=== PATIENT | male | born 1980 | race Caucasian/White ===

== ENCOUNTER 2024-02-24 06:47 | Observation (INO) ==
--- NOTE | 2024-02-24 07:26 | Emergency Department Note ---
Impression & Plan Abnormal EKG, Tachycardia, Leukocytosis ED Provider Note NAME: ARLENE OVERTON AGE: 43 SEX: M : 1980 ARRIVES VIA: Walk-In INFORMANT: Patient ED PROVIDER(S): Greg Saldana DO CHIEF COMPLAINT: Abnormal blood work HPI: Patient is a 43-year-old male who presents the ER who notes that his fingertips have been feeling cold for the past several weeks. He notes it comes and goes and is able to rewarm. He notes the blood work and EKG and was found to have an abnormal EKG. He also notes to purple spots on his feet which have been present. He denies any headache or change in vision. No chest pain or shortness of breath. He does have a little bit of congestion runny nose. No recent surgeries. No drug use other than marijuana. No IV drug use. No other exacerbating or remitting factors. No dysuria urgency or frequency. ADDITIONAL HISTORY OBTAINED: Per HPI Chronic Medical/Social Conditions Affecting Care: Per HPI PAST MEDICAL HISTORY:See Below PAST SURGICAL HISTORY:See Below FAMILY HISTORY:See Below SOCIAL HISTORY:See Below HOME MEDICATIONS:See Below ALLERGIES:See Below VITALS:See Below PHYSICAL EXAMINATION: GENERAL: Sitting up in bed, alert, well appearing, well nourished, no distress, non-toxic EYE EXAM: normal conjunctiva. OROPHARYNX: mucous membranes are moist NECK: supple, no nuchal rigidity, no adenopathy, non-tender LUNGS: Clear to auscultation. Normal chest wall mechanics HEART: no murmurs, S1 normal and S2 normal ABDOMEN: abdomen soft, non-tender, normo-active bowel sounds, no masses, no rebound or guarding. BACK: Back is symmetrical on inspection and there is no deformity, no midline tenderness, no CVA tenderness. SKIN: Brown/purple spots on bilateral toes UPPER EXTREMITIES: upper extremities are grossly normal. LOWER EXTREMITIES: No pitting edema. NEURO EXAM: Normal sensorium, cranial nerves II-XII grossly intact, normal speech, no gross weakness of arms, no gross weakness of legs. No drift. Finger to nose intact. Gross sensation intact. MEDICAL DECISION MAKING: Patient is a 43-year-old male who presents ER for above-stated complaint. External records were reviewed including labs and EKG which showed a white count of 15,000 yesterday in combination with a left shift as well as a sinus tachycardia on the EKG at a rate of 121. IV was established with orders obtained. Labs show no significant leukocytosis or anemia. BMP on LFTs bilirubin and troponin was negative. Pro-Zelalem normal. UA was clean. Patient has been having intermittent bouts of tachycardia at home. He has what appears to be petechiae on his feet. This in combination with a white count of 15,000 yesterday and his intermittent tachycardia I did discuss case with the hospitalist for further evaluation management treatment. Of note on the chest x-ray per radiology there is also suggestion of effusions. Consults/Care Managements Discussions: Per [facility] Triage Nursing notes reviewed. Limited review of prior medical records performed Vital Signs: reviewed and remarkable for tachycardia and hypertensive Differential diagnosis: Differential diagnosis includes etiologies such as sepsis, UTI, pneumonia, metabolic, electrolyte abnormalities, cardiac sources, intracerebral event, toxicologic, neurological, as well as others were entertained. ER treatment provided: See below Diagnostics interpreted by me include EKG and cardiac monitoring as listed below: -Cardiac Monitoring: An order was placed or continuous cardiac monitoring. The monitor shows a rate of 120 with sinus rhythm. -ECG: Sinus tachycardia rate of 106 Normal axis No PVCs T wave inversions in septal leads -Laboratory studies:Interpreted by me as stated above in MDM and shown below. Imaging studies: Xrays: As interpreted by me: Portable AP upright 1 view of the chest shows no focal infiltrate CTs show: none Past Med/Surg History Medical History (Updated 02/24/24 @ 13:05 by Greg Saldana DO) Environmental allergies BPH loc w/o ur obs/LUTS Angioedema chronic angioedema - saw digital product specialist several yrs ago Surgical History S/P cholecystectomy Family History Father Hypertension Prostate cancer Stroke Mother Leukemia Denies family history of Sickle cell disease Social History (Updated 02/24/24 @ 10:51 by Brunilda Francois PA-C) Smoking Status: Never smoker Hx Alcohol Use: No Preferred Language: [place] Communication Ability: Effective Jawbone Puller Required: No Beliefs That Will Affect Care: None Current Living Situation: Spouse current occupational status: employed 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 Other Information That Helps Us Care for You: No Feels Safe at Home: Yes Safety Concerns: Feels Safe At This Time Physical Activity Frequency: 3-4 Times per Week Assistive Devices: None Allergies Allergies Allergy/AdvReac Type Severity Reaction Status Date / Time No Known Drug Allergies AdvReac Verified 02/24/24 10:32 Home Meds Home Medications Medication Instructions Recorded Confirmed cetirizine 10 mg tablet 10 mg PO DAILY 02/24/24 02/24/24 Results & Data (ED) Vital Signs Vital Signs - 24 hr 02/24/24 06:53 02/24/24 07:08 02/24/24 07:09 Temperature 36.7 C Temperature Source Temporal Artery Scan Pulse Rate 133 H 111 H Pulse Rate from SpO2 Sensor Pulse Rhythm Regular Respiratory Rate 16 14 Respiratory Effort / Characteristics Non-Labored Spontaneous Respiratory Depth Normal Respiratory Pattern Blood Pressure 150/88 H 153/112 H Blood Pressure [Left Arm] Blood Pressure Mean 108 129 Blood Pressure Mean [Left Arm] Blood Pressure Position Sitting Blood Pressure Position [Left Arm] Pulse Oximetry 100 97 Oxygen Delivery Method Room Air Room Air Sepsis Recent Fever Within 48 Hours No Sepsis New/Unexplained Change in Mental Status No Sepsis Action Taken by Nursing No Action Required 02/24/24 07:09 02/24/24 07:11 02/24/24 07:30 Temperature 36.7 C Temperature Source Oral Pulse Rate 123 H Pulse Rate from SpO2 Sensor 117 H Pulse Rhythm Respiratory Rate 13 18 Respiratory Effort / Characteristics Non-Labored Spontaneous Respiratory Depth Normal Respiratory Pattern Regular Blood Pressure 156/104 H Blood Pressure [Left Arm] 150/84 H Blood Pressure Mean 121 Blood Pressure Mean [Left Arm] 106 Blood Pressure Position Blood Pressure Position [Left Arm] Lying Pulse Oximetry 100 97 Oxygen Delivery Method Room Air Sepsis Recent Fever Within 48 Hours Sepsis New/Unexplained Change in Mental Status Sepsis Action Taken by Nursing 02/24/24 07:30 02/24/24 08:00 02/24/24 08:00 Temperature Temperature Source Pulse Rate 102 H 108 H Pulse Rate from SpO2 Sensor 103 H 98 H Pulse Rhythm Respiratory Rate 14 15 Respiratory Effort / Characteristics Respiratory Depth Respiratory Pattern Blood Pressure 146/104 H Blood Pressure [Left Arm] Blood Pressure Mean 112 Blood Pressure Mean [Left Arm] Blood Pressure Position Blood Pressure Position [Left Arm] Pulse Oximetry 97 100 Oxygen Delivery Method Sepsis Recent Fever Within 48 Hours Sepsis New/Unexplained Change in Mental Status Sepsis Action Taken by Nursing 02/24/24 08:26 02/24/24 08:30 02/24/24 09:00 Temperature Temperature Source Pulse Rate 94 H 87 Pulse Rate from SpO2 Sensor Pulse Rhythm Respiratory Rate 15 Respiratory Effort / Characteristics Respiratory Depth Respiratory Pattern Blood Pressure 158/106 H Blood Pressure [Left Arm] Blood Pressure Mean 121 Blood Pressure Mean [Left Arm] Blood Pressure Position Blood Pressure Position [Left Arm] Pulse Oximetry Oxygen Delivery Method Sepsis Recent Fever Within 48 Hours Sepsis New/Unexplained Change in Mental Status Sepsis Action Taken by Nursing 02/24/24 09:00 02/24/24 09:30 02/24/24 09:30 Temperature Temperature Source Pulse Rate 83 104 H Pulse Rate from SpO2 Sensor 80 105 H Pulse Rhythm Respiratory Rate 17 17 Respiratory Effort / Characteristics Respiratory Depth Respiratory Pattern Blood Pressure 182/108 H Blood Pressure [Left Arm] Blood Pressure Mean 132 Blood Pressure Mean [Left Arm] Blood Pressure Position Blood Pressure Position [Left Arm] Pulse Oximetry 100 100 Oxygen Delivery Method Sepsis Recent Fever Within 48 Hours Sepsis New/Unexplained Change in Mental Status Sepsis Action Taken by Nursing 02/24/24 09:56 02/24/24 09:56 02/24/24 10:00 Temperature Temperature Source Pulse Rate 83 Pulse Rate from SpO2 Sensor 85 Pulse Rhythm Respiratory Rate 17 Respiratory Effort / Characteristics Respiratory Depth Respiratory Pattern Blood Pressure 158/94 H 149/89 H Blood Pressure [Left Arm] Blood Pressure Mean 119 111 Blood Pressure Mean [Left Arm] Blood Pressure Position Blood Pressure Position [Left Arm] Pulse Oximetry 100 Oxygen Delivery Method Sepsis Recent Fever Within 48 Hours Sepsis New/Unexplained Change in Mental Status Sepsis Action Taken by Nursing 02/24/24 10:00 Temperature Temperature Source Pulse Rate 93 H Pulse Rate from SpO2 Sensor 88 Pulse Rhythm Respiratory Rate 16 Respiratory Effort / Characteristics Respiratory Depth Respiratory Pattern Blood Pressure Blood Pressure [Left Arm] Blood Pressure Mean Blood Pressure Mean [Left Arm] Blood Pressure Position Blood Pressure Position [Left Arm] Pulse Oximetry 98 Oxygen Delivery Method Sepsis Recent Fever Within 48 Hours Sepsis New/Unexplained Change in Mental Status Sepsis Action Taken by Nursing Laboratory Data 02/24/24 07:34 02/24/24 07:34 Lab Results 02/24/24 02/24/24 02/24/24 Range/Units 07:34 07:41 09:47 WBC 6.87 (4.8-10.8) K/ul RBC 5.03 (4.70-6.10) M/uL Hgb 14.9 (14.0-18.0) g/dl Hct 43.4 (42.0-52.0) % MCV 86.3 (80.0-100.0) fL MCH 29.6 (25.0-34.0) pg MCHC 34.3 (32.0-36.0) g/dL RDW Std Deviation 38.7 (36.4-46.3) fL RDW Coeff of Ceferino 12.4 (11.5-14.5) % Plt Count 284 (130-400) K/uL MPV 9.3 L (9.4-12.4) fL Immature Gran % (Auto) 0.3 % Neut % (Auto) 57.1 % Lymph % (Auto) 31.3 % [place] % (Auto) 7.7 % Eos % (Auto) 3.3 % Baso % (Auto) 0.3 % Neut # (Auto) 3.92 (1.40-6.50) K/uL Lymph # (Auto) 2.15 (1.20-3.40) K/uL [place] # (Auto) 0.53 (0.11-0.59) K/uL Eos # (Auto) 0.23 (0.00-0.50) K/uL Baso # (Auto) 0.02 (0.00-0.20) K/uL Immature Gran # (Auto) 0.02 (0.01-0.20) K/uL Peripher Smr Path Cons Cancelled Sodium 140 (136-145) mmol/L Potassium 3.5 (3.5-5.1) mmol/L Chloride 105 (98-107) mmol/L Carbon Dioxide 27 (21-32) mmol/L Anion Gap 8 (3-11) BUN 16 (6-23) mg/dl Creatinine 1.00 (0.6-1.4) mg/dl Est Cr Clr Drug Dosing 94.3 ml/min Est GFR ( Amer) 107.9 ml/min Est GFR (Non-Af Amer) 93.1 ml/min BUN/Creatinine Ratio 16.0 (10-20) Glucose 112 H (70-99(Fasting)) mg/dl Lactate 1.4 (0.4-2.0) mmol/L Calcium 9.9 (8.6-10.3) mg/dl Magnesium 2.1 (1.7-2.4) mg/dl Total Bilirubin 0.9 (0.2-1.0) mg/dl Direct Bilirubin 0.1 (0-0.2) mg/dl AST 13 (13-39) U/L ALT 13 (7-52) U/L Alkaline Phosphatase 61 (34-104) U/L Troponin I High Sens < 2.3 (0-20) pg/ml Total Protein 7.4 (6.0-8.3) gm/dl Albumin 4.7 (3.4-5.0) gm/dl Procalcitonin 0.05 (0-0.5) ng/ml Urine Color Yellow Urine Appearance Clear (Clear) Urine pH 6.5 (4.5-7.5) Ur Specific [place] 1.013 (1.000-1.030) Urine Protein Negative (Negative) Urine Glucose (UA) Negative (Negative) Urine Ketones Trace H (Negative) Urine Blood Negative (Negative) Urine Nitrite Negative (Negative) Urine Bilirubin Negative (Negative) Urine Urobilinogen Negative (Negative) Ur Leukocyte Esterase Negative (Negative) Administered Medications Discontinued Medications Sodium Chloride (Nss) 1,000 mls @ 999 mls/hr IV .Q1H1M MYA Stop: 02/24/24 09:30 Last Infusion: 02/24/24 11:06 Dose: Infused Documented By: Admin: 02/24/24 09:13 Dose: 999 mls/hr Documented By: Infusion: 02/24/24 09:13 Dose: Infused Documented By: Admin: 02/24/24 07:53 Dose: 999 mls/hr Documented By: NAYELI Ceftriaxone Sodium (Rocephin) 2,000 mg in 50 mls @ 100 mls/hr IV NOW STA Stop: 02/24/24 07:55 Last Infusion: 02/24/24 09:14 Dose: Infused Documented By: Admin: 02/24/24 07:52 Dose: 100 mls/hr Documented By: NAYELI Imaging Data Radiologist's Impression: Chest X-Ray 02/24/24 07:08 XR chest 1V portable HISTORY: 43 years-old Male Sepsis COMPARISON: None TECHNIQUE: AP view of the chest FINDINGS: Cardiomediastinal and hilar silhouettes are within normal limits. No pneumothorax, large pleural effusion or airspace consolidation. There is mild blunting of the lateral costophrenic angles. Bones of the chest appear grossly intact. IMPRESSION: 1. No evidence of pneumonia. 2. Equivocal trace pleural effusions. ACT 112: Negative or not required by law. The above report was generated using voice recognition software. It may contain grammatical, syntax or spelling errors. Electronically signed by: Oscar Pederson M.D. 02/24/2024 7:35 AM Discharge Plan Visit Data Chief Complaint: Recheck/Abnormal Lab/Rx Stated Complaint: ABNORMAL LABS ED Provider: Greg Saldana Discharge Problem: Abnormal EKG, Tachycardia, Leukocytosis Patient Disposition: Admitted As Inpatient Discharge Instructions Interventions: ED Discharge Assessment Last Done: 02/24/24 11:27 Discharge Problem: Leukocytosis Qualifiers: Leukocytosis type: unspecified Qualified Code(s): D72.829 - Elevated white blood cell count, unspecified
--- NOTE | 2024-02-24 07:36 | XRay Report ---
XR chest 1V portable HISTORY: 43 years-old Male Sepsis COMPARISON: None TECHNIQUE: AP view of the chest FINDINGS: Cardiomediastinal and hilar silhouettes are within normal limits. No pneumothorax, large pleural effu speedy or airspace consolidation. There is mild blunting of the lateral costophrenic angles. Bones of t he chest appear grossly intact. IMPRESSION: 1. No evidence of pneumonia. 2. Equivocal trace pleural effusions. ACT 112: Negative or not required by law. The above report was generated using voice recognition software. It may contain grammatical, syntax o r spelling errors. Electronically signed by: Oscar Pederson M.D. 02/24/2024 7:35 AM
[2024-02-24] MEDS: cefTRIAXone SODIUM 2,000 MG/50 ML BAG IV STA (07:52)
[2024-02-24] MEDS: SODIUM CHLORIDE 0.9% 1,000 ML IV SCH (07:53)
[2024-02-24 08:00] LABS: Basophils # (auto) 0.02 K/uL (0.00-0.20); Basophils % (auto) 0.3 %; Eosinophils # (auto) 0.23 K/uL (0.00-0.50); Eosinophils % (auto) 3.3 %; Hematocrit (blood only) 43.4 % (42.0-52.0); Hemoglobin 14.9 g/dl (14.0-18.0); Immature Granulocytes # (auto) 0.02 K/uL (0.01-0.20); Immature Granulocytes % (auto) 0.3 %; Lymphocytes # (auto) 2.15 K/uL (1.20-3.40); Lymphocytes % (auto) 31.3 %; Mean Corpuscular Hemoglobin 29.6 pg (25.0-34.0); Mean Corpuscular Hgb Conc 34.3 g/dL (32.0-36.0); Mean Corpuscular Volume 86.3 fL (80.0-100.0); Mean Platelet Volume 9.3 fL (9.4-12.4); Monocytes # (auto) 0.53 K/uL (0.11-0.59); Monocytes % (auto) 7.7 %; Neutrophils # (auto) 3.92 K/uL (1.40-6.50); Neutrophils % (auto) 57.1 %; Platelet Count 284 K/uL (130-400); RDW Coefficient of Variation 12.4 % (11.5-14.5); RDW Standard Deviation 38.7 fL (36.4-46.3); Red Blood Count 5.03 M/uL (4.70-6.10); White Blood Count 6.87 K/ul (4.8-10.8)
[2024-02-24 08:19] LABS: Alanine Aminotransferase 13 U/L (7-52); Albumin Level 4.7 gm/dl (3.4-5.0); Alkaline Phosphatase 61 U/L (34-104); Anion Gap 8 (3-11); Aspartate Aminotransferase 13 U/L (13-39); Bilirubin Direct 0.1 mg/dl (0-0.2); Bilirubin,Total 0.9 mg/dl (0.2-1.0); Blood Urea Nitrogen 16 mg/dl (6-23); Calcium 9.9 mg/dl (8.6-10.3); Carbon Dioxide 27 mmol/L (21-32); Chloride 105 mmol/L (98-107); Creatinine Clr Calc Pharmacy 94.3 ml/min; Est GFR (African American) 107.9 ml/min; Est GFR (Non-African American) 93.1 ml/min; Glucose 112 mg/dl (70-99(Fasting)); Magnesium 2.1 mg/dl (1.7-2.4); Potassium 3.5 mmol/L (3.5-5.1); Sodium 140 mmol/L (136-145); Total Protein 7.4 gm/dl (6.0-8.3)
[2024-02-24 08:24] LABS: Troponin I High Sensitivity < 2.3 pg/ml (0-20)
[2024-02-24 09:53] LABS: Appearance Urine Clear (Clear); Bilirubin Urine Negative (Negative); Blood Urine Negative (Negative); Color Urine Yellow; Glucose Urine UA Negative (Negative); Ketones Urine Trace (Negative); Leukocyte Esterase Urine Negative (Negative); Nitrite Urine Negative (Negative); Protein Urine Negative (Negative); Specific Gravity Urine 1.013 (1.000-1.030); Urobilinogen Urine Negative (Negative); pH Urine 6.5 (4.5-7.5)
--- NOTE | 2024-02-24 10:30 | History & Physical Report ---
Date of Service February 24, 2024 Assessment & Plan (1) Tachycardia: Plan: This is a 43 y/o male with history of chronic angioedema and environmental allergies who was sent to the ED today by urgent care after lab work yesterday for worsening difficulties with cold hands and feet showed leukocytosis. He was also noted to have an abnormal EKG, which he was told was likely related to chronic changes from undiagnosed HTN rather than an acute cardiac issue. He has noted new tachycardia and ROBB over the last several weeks. He has no clear evidence of infection on work-up in the ED although the patient was started on empiric ceftriaxone while cultures are pending. Procalcitonin was 0.05. WBCs in the ED today are 6.87. EKG appears stable from yesterday, initial troponin is negative. When pt evaluated, HR on telemetry was persistently in the 110s. - Observe on telemetry overnight - Repeat EKG in the AM - Check ECHO - Routine cardiology consult to determine if additional work-up is indicated at this time - Will continue empiric antibiotics pending culture results - if negative, will discontinue (2) Abnormal EKG: Plan: See plan for #1 - no prior diagnosis of hypertension, but pt is currently using supplements (CBD, THC derivative) for BP control as outpatient. (3) Leukocytosis: Plan: Family history of leukemia. Pt denies prior history of sickle cell or other blood dyscrasias that he is aware of. - Repeat CBC in AM - Check peripheral smear. - Empiric antibiotics as discussed (4) Environmental allergies: Plan: Chronic, stable Continue cetirizine 10 mg daily Plan Pt seen and reviewed with collaborating physician, Dr. Jones. Plan of care discussed and as outlined above. Code Status: Full code DVT prophylaxis: SCDs Huber Francois PA-C History of Present Illness Chief Complaint: abnormal labs Primary Care Provider: Douglas Zuñiga This is a 43 y/o male with history of chronic angioedema and environmental allergies who was sent to the ED today by urgent care after lab work yesterday showed leukocytosis. Pt was also noted to have an abnormal EKG for which the urgent care provider had referred patient to cardiology but this appointment was not yet scheduled. Pt reports that he went to urgent care yesterday for evaluation of worsening issues with hands and feet being cold and difficult to warm back up. Digits may get pale at times but no cyanosis or erythema. Initially this was sporadic but now seems to be getting more constant. No associated dysesthesias. Urgent care provider ordered lab work. CBC showed leukocytosis with a WBC count of 15. Provider attempted to reach the patient multiple times between 5 am and 6:30 am today, but when she could not reach him, she spoke with local police and asked them to do a wellness check and send pt to the ER. Pt reports being awoken by the police knocking on his door around 6:30 am today and instructing him to go to the ED, so he complied. Currently, he has no acute complaints. He has noted tachycardia on his heart monitor for the last few weeks. He is a runner - before winter, he was running 5-8 miles 2-3x/week without difficulty. He has continued to exercise indoors through the winter - both aerobic exercise and calisthenics. This coldness in his distal extremities was initially associated with exercise but now more constant. This week he started running again and has noticed that he is more fatigued and gets dyspneic with only a few miles, which is abnormal compared to prior. He denies chest pain, lightheadedness, or syncope. He has also noted dark spots on his toes that started a few months ago (he is not sure exactly when). These spots are not painful, have no bled, and seem to be resolving. He notes that as part of their resolution he may peel several layers of skin off. He has a history of chronic angioedema which was diagnosed by an [facility] and recovery combat rescue several years ago when he lived in [place]. He also has multiple environmental allergies, including different pollens. He does take cetirizine 10 mg daily. He also uses CBD and Delta 8 (THC derivative) daily for blood pressure, to help with stress. He tried niacin this week to try to dilate blood vessels because of the cold extremities - did note flushing. He has taken a few other supplements sporadically but nothing else daily. He has an appointment later this month to establish care with Dr. Zuñiga as his PCP. Allergies Allergy/AdvReac Type Severity Reaction Status Date / Time No Known Drug Allergies AdvReac Verified 02/24/24 10:32 Home Medications Medication Instructions Recorded Confirmed Type cetirizine 10 mg tablet 10 mg PO DAILY 02/24/24 02/24/24 History Past Med/Surg History Medical History (Updated 02/24/24 @ 11:06 by Brunilda Francois PA-C) Environmental allergies BPH loc w/o ur obs/LUTS Angioedema chronic angioedema - saw [facility] several yrs ago Surgical History S/P cholecystectomy Family History Father Hypertension Prostate cancer Stroke Mother Leukemia Denies family history of Sickle cell disease Social History (Updated 02/24/24 @ 10:51 by Brunilda Francois PA-C) Smoking Status: Never smoker Current Living Situation: Spouse current occupational status: employed 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 Feels Safe at Home: Yes Physical Activity Frequency: 3-4 Times per Week Assistive Devices: None Review of Systems Review of Systems: All systems reviewed & are unremarkable except as noted in HPI & below Constitutional: no fever and no chills Eyes: no diplopia Ear, Nose, Mouth, Throat: no nasal congestion, no sore throat and no dysphagia Respiratory: no cough and no wheezing Cardiovascular: + dyspnea on exertion; no chest pain and no syncope Gastrointestinal: no abdominal pain, no nausea, no vomiting and no diarrhea/loose stools Genitourinary: no dysuria or no hematuria Integumentary: as per Subjective / HPI Neurologic: no generalized weakness and no dizziness Physical Exam Physical Exam: For details of the physical exam, please see the physician addendum. Results & Data Results & Data Vital Signs (Past 12 Hours) Vital Signs Temp Pulse Resp BP Pulse Ox O2 Del Method 02/24/24 08:30 87 15 02/24/24 08:26 94 H 02/24/24 08:00 108 H 15 100 02/24/24 08:00 146/104 H 02/24/24 07:30 102 H 14 97 02/24/24 07:30 156/104 H 02/24/24 07:09 123 H 13 100 02/24/24 07:09 153/112 H 02/24/24 07:08 111 H 14 97 Room Air 02/24/24 06:53 36.7 C 133 H 16 150/88 H 100 Room Air Laboratory Results Laboratory Results - last 24 hr 02/24/24 02/24/24 02/24/24 07:34 07:41 09:47 WBC 6.87 RBC 5.03 Hgb 14.9 Hct 43.4 MCV 86.3 MCH 29.6 MCHC 34.3 RDW Std Deviation 38.7 RDW Coeff of Ceferino 12.4 Plt Count 284 MPV 9.3 L Immature Gran % (Auto) 0.3 Neut % (Auto) 57.1 Lymph % (Auto) 31.3 [place] % (Auto) 7.7 Eos % (Auto) 3.3 Baso % (Auto) 0.3 Neut # (Auto) 3.92 Lymph # (Auto) 2.15 [place] # (Auto) 0.53 Eos # (Auto) 0.23 Baso # (Auto) 0.02 Immature Gran # (Auto) 0.02 Sodium 140 Potassium 3.5 Chloride 105 Carbon Dioxide 27 Anion Gap 8 BUN 16 Creatinine 1.00 Est Cr Clr Drug Dosing 94.3 Est GFR ( Amer) 107.9 Est GFR (Non-Af Amer) 93.1 BUN/Creatinine Ratio 16.0 Glucose 112 H Lactate 1.4 Calcium 9.9 Magnesium 2.1 Total Bilirubin 0.9 Direct Bilirubin 0.1 AST 13 ALT 13 Alkaline Phosphatase 61 Troponin I High Sens < 2.3 Total Protein 7.4 Albumin 4.7 Procalcitonin 0.05 Urine Color Yellow Urine Appearance Clear Urine pH 6.5 Ur Specific [place] 1.013 Urine Protein Negative Urine Glucose (UA) Negative Urine Ketones Trace H Urine Blood Negative Urine Nitrite Negative Urine Bilirubin Negative Urine Urobilinogen Negative Ur Leukocyte Esterase Negative Diagnostic Findings Chest X-Ray 02/24/24 07:08 XR chest 1V portable HISTORY: 43 years-old Male Sepsis COMPARISON: None TECHNIQUE: AP view of the chest FINDINGS: Cardiomediastinal and hilar silhouettes are within normal limits. No pneumothorax, large pleural effusion or airspace consolidation. There is mild blunting of the lateral costophrenic angles. Bones of the chest appear grossly intact. IMPRESSION: 1. No evidence of pneumonia. 2. Equivocal trace pleural effusions. ACT 112: Negative or not required by law. The above report was generated using voice recognition software. It may contain grammatical, syntax or spelling errors. Electronically signed by: Oscar Pederson M.D. 02/24/2024 7:35 AM Medications Administered Discontinued Medications Sodium Chloride (Nss) 1,000 mls @ 999 mls/hr IV .Q1H1M MYA Stop: 02/24/24 09:30 Last Admin: 02/24/24 09:13 Dose: 999 mls/hr Documented By: Infusion: 02/24/24 09:13 Dose: Infused Documented By: Admin: 02/24/24 07:53 Dose: 999 mls/hr Documented By: NAYELI Ceftriaxone Sodium (Rocephin) 2,000 mg in 50 mls @ 100 mls/hr IV NOW STA Stop: 02/24/24 07:55 Last Infusion: 02/24/24 09:14 Dose: Infused Documented By: Admin: 02/24/24 07:52 Dose: 100 mls/hr Documented By: NAYELI Supervising Physician Co-Signing Physician Notes Pt seen and examined by me, care coordinated w/ Huber Francois, pls refer to her note above for further detail. Pt is 43 yo M w/ hx of chronic angioedema and environmental allergies (saw by [facility] in [place]) who presented in urgent care center yesterday for hx of cold hands and feet for several weeks to months. Pt currently does not have a PCP in this are and urgent care was able to set him up w/ [facility] PCP for March 08. At urgent care center pt was found to have abnormal ECG and blood work was also obtained, his WBC was found elevated and therefore he was requested to present to the ED. In the ED blood cultx were obtained and pt was started empirically on Rocephin. ECG and CXR also obtained. WBC normal currently per ED bloodwork. Pt says he also has had small dark spots on his toes for several months. His fingers and toes do not turn blue/ purple but they turn white which is unusual for him. He also used to run for several miles , now that is more difficult for him. Reports that his mother was diagnosed with leukemia years ago and underwent bone marrow transplant. His father is and has allergies (so does his brother), also cva in his early 50s. Currently pt is sitting up in bed in NAD, he is awake, alert, oriented answering appropriately. He is breathing comfortably on RA. Lungs are CTAB, heart sounds - mildly tachycardic. Abdomen soft, nontender, nondistended. No LE edema. small dark spots noted on toes. He is moving extremities. Pt's is present at the bedside and also helps provide hx. Blood cultx obtained in ED - will follow, Rocephin started in ED - cont. for now. WBC normal here in the ED. Will obtain peripheral smear - if abnormal will consult w/ hematology. Pt w/ abnormal ECG and decreased exercise tolerance, been tachycardic - will monitor on tele, will obtain echo and will discuss w/ cardiology. Encouraged pt to follow up w/ PCP after his hospital stay. MD Robert (3) Leukocytosis Leukocytosis type: unspecified Qualified Code(s): D72.829 - Elevated white blood cell count, unspecified
[2024-02-24] MEDS: OPTIRAY 320 125ml IV ONE (13:09)
--- NOTE | 2024-02-24 13:19 | CT Scan Report ---
CT angio chest PE protocol CLINICAL HISTORY: r/o PE - tachycardia, ROBB TECHNIQUE: Multidetector row helical CT of the chest was performed with angiographic protocol. Jessica l and sagittal reformations were obtained. Coronal and sagittal MIPS were obtained from the axial miki a set and were submitted for review. Automated dose lowering techniques and/or adjustment according to patient size were utilized for this exam. CT DOSE: 492.04 mGy.cm Comparison: Comparison is made to chest radiograph 02/24/2024 FINDINGS: Lungs and pleura: Multiple small pulmonary nodules are in the left upper lobe measuring up to 3 mm (s eries 4 image 180) Heart and pericardium: Heart size is normal. No pericardial effusion. Vessels: No evidence of pulmonary embolism. Mediastinum and laura: Unremarkable. Chest wall and lower neck: Unremarkable. Abdomen: Unremarkable. Bones: Unremarkable. IMPRESSION: 1. No acute abnormality and in particular no evidence of pulmonary embolus. 2. Tiny pulmonary nodules as above. According to Fleischner criteria, no follow-up is required in lo w risk patients, in high-risk patients, a 12 month follow-up CT can be optionally performed. ACT 112: Negative or not required by law. Electronically signed by: Leif Romano M.D. 02/24/2024 1:17 PM
--- NOTE | 2024-02-24 14:51 | Cardiology Consultation ---
Date of Consultation February 24, 2024 Assessment & Plan (1) Sinus tachycardia: (2) HTN (hypertension): (3) Leukocytosis: (4) Abnormal EKG: Plan Sinus tachycardia. Telemetry without significant arrhythmias. Resting echocardiography with a structurally normal heart. Suspect tachycardia secondary to anxiety and Delta-9. Recommend discontinuation of Delta-9. Recommend treatment of anxiety. Dyspnea on exertion. History most consistent with deconditioning. Consider further evaluation if symptoms persist or progress. Hypertension. Possible underlying Raynauds. Nonpharmacologic treatment of hypertension discussed. Consider a trial of low-dose amlodipine (2.5 mg/day) if blood pressure remains elevated; benefits, use and risks of amlodipine explained. Transient leukocytosis. ? Secondary to stress reaction. Blood cultures and peripheral smear obtained, pending. Patient empirically being treated with Ceftriaxone. As per Hospitalist. I spent a total of 60 minutes on the date of service in preparation, delivery, and documentation of the care provided to this patient excluding any time spent in the performance of separately billed services. This visit was a split-shared visit with the substantive portion of the medical decision making performed by the supervising shank piece tacker/billing provider. Supervising Physician Co-Signing Physician Notes I have reviewed the advance practitioner's documentation, and I agree with, and take responsibility for the plan of care. 43-year-old male referred from urgent care clinic due to tachycardia, elevated white blood cell count, possible abnormal ECG. Patient describes decreased exercise tolerance after a sedentary winter. Recently completed a 3 mile run, however, he plans to run 5 miles. Voices concern regarding feeling of "cold warner nds, and cold feet". Symptoms worse in the winter. Checks blood pressure approximately 10 times per day. Home blood pressure readings generally well- controlled. PE: VSS. Gen: NAD, AAO x3. Heart: Regular rhythm, normal S1-S2. No murmur. Lungs: Clear bilateral, no rales, rhonchi, wheeze. Ext: No edema, palpable distal pulses. A/P: 43-year-old male concerns regarding tachycardia, elevated blood pressure, cold hands/feet (possible Raynaud's). Resting 2D transthoracic echocardiogram within normal limits. No evidence of atrial enlargement or left ventricular hypertrophy. Overall, home blood pressure readings appear well-controlled. Telemetry reviewed demonstrating sinus rhythm with heart rate ranging 70s-90s his symptoms may be consistent with Raynaud's phenomenon during periods of cold weather. Consider addition of low-dose calcium channel laura in the future. At this time I have recommended he discontinue all CBD and THC supplements. Patient voiced understanding. Further management of leukocytosis as per internal medicine. I spent a total of 25 minutes on the date of service in preparation, delivery, and documentation of the care provided to this patient, excluding any time spent in the performance of separately billed services. History of Present Illness Reason for Consultation: New dyspnea on exertion, tachycardia, abnormal EKG Requesting Physician: Dr. Jones Attending Physician: Dr. Jones History of Present Illness Mr. Ney Recinos who was referred to the [facility] ER on February 24, 2024 after initial evaluation at urgent care. Patient presented to urgent care due to recurrent cold sensation in his hands and feet. Elevated blood pressure as well as heart rate at Urgent Care led to an EKG revealing sinus tachycardia with a ventricular rate of 121 bpm with possible biatrial enlargement a possible old septal infarct. CBC revealed leukocytosis with a white blood cell count of 15 K with left shift. Due to CBC findings patient was referred to the ER for further evaluation and treatment. Patient notes experiencing cold lower extremities for some time. He describes working out in his unheated basement throughout the winter and it taking the entire workout period for his feet to "warm up." He describes a "cold numbness" that would come and go when exposed to cold environments and possible spots on his toes "like there could be some blood under the surface" that would also come and go. Patient notes less activity over the winter, previously running 5 to 8 miles two to three times per week though with less activity of late. He notes having a hemorrhoid (nonbleeding) approximately 1 month ago and being unable to exercise for the last month due to fear of aggravating send hemorrhoid. More recently patient resumed running and felt short of breath after running 3 of the his planned to 5 miles, needing to walk the last 2 miles. Patient notes utilizing CBD Gummies and delta 8 Gummies for the last 10 months to help manage blood pressure as well as anxiety. He notes only using the delta H in the evenings as it his "mind altering" and he does not want this to affect his work or interactions with others. EKG on presentation to this facility revealed sinus tachycardia with ventricular rate of 106 bpm with possible left atrial enlargement. Resting echocardiography obtained earlier today revealed a structurally normal heart with normal systolic function, EF 65 to 70%. No LVH. No significant valvular pathology. White blood cell count 6.87 in the ER. Blood cultures obtained, pending. CT scan of the chest revealed no acute abnormality. No activity related chest pain or discomfort. No resting or nocturnal dyspnea. No significant palpitations. No fluid retention. No dizziness or syncope. No fevers. No chills. No melena or hematochezia. Past Medical and Surgical History Anxiety Chronic angioedema Environmental allergies Enlarged prostate Hemorrhoid, without bleeding Status post cholecystectomy circa 15 years ago, in [place] Family History: Mother is alive with leukemia, recurrent, in remission. Patient notes father is -[place] and alive with hypertension, history of multiple strokes, on blood thinners. Brother with unknown stomach issues, diet controlled. Social History: Never smoker. Never smokeless tobacco user. Social alcohol only. Delta 8 and CBD Gummies for blood pressure and anxiety. . No children. Cj naiduist, [employer]. Originally from [place]. Allergies Allergy/AdvReac Type Severity Reaction Status Date / Time No Known Drug Allergies AdvReac Verified 02/24/24 10:32 Home Medications Medication Instructions Recorded Confirmed Type cetirizine 10 mg tablet 10 mg PO DAILY 02/24/24 02/24/24 History Patient History Medical History Environmental allergies BPH loc w/o ur obs/LUTS Angioedema chronic angioedema - saw factory supervisor several yrs ago Surgical History S/P cholecystectomy Family History Father Hypertension Prostate cancer Stroke Mother Leukemia Denies family history of Sickle cell disease Social History Smoking Status: Never smoker Hx Alcohol Use: No Preferred Language: Persian Communication Ability: Effective Sustainability Project Coordinator Required: No Beliefs That Will Affect Care: None Current Living Situation: Spouse current occupational status: employed current occupation: 3-D computer science teacher Other Information That Helps Us Care for You: No Feels Safe at Home: Yes Safety Concerns: Feels Safe At This Time Physical Activity Frequency: 3-4 Times per Week Assistive Devices: None Review of Systems Review of Systems: Complete Review of Systems: Constitutional: No fevers, chills, or night sweats. HEENT: Occasional headache, aided by Tylenol. No recent NSAID use. No history of amaurosis fugax. No floaters. Pulmonary: No history of PE, asthma, emphysema, COPD, or sleep apnea. Cardiac: No prior cardiac history. GI/Abd: No dysphagia. No GERD. No melana or hematochezia. No kidney problems. No liver problems. No history of pancreatic issues. Vascular: No history of carotid artery disease, AAA, or lower extremity claudication/PAD. Hematologic: No coagulation disorder, anemia, or abnormal bleeding. Musculoskeletal: Negative. Skin: No rash. No tick bites. Neurologic: No history of TIA/CVA, or seizure disorder. Male : Enlarged prostate, BPH Endocrine: No history of diabetes mellitus. No thyroid trouble. Complete Review of Systems is as stated above, negative, or noncontributory Physical Exam Physical Exam: General: A&Ox3. NAD. Somewhat anxious. HENT: Normocephalic. Atraumatic. Eyes: PER. Conjunctiva pink, sclera clear. Neck: No JVD. No HJR. Heart: RRR, 90 bpm. Very soft systolic murmur heard at the left upper sternal border. No rub. No gallop. PMI is nondisplaced. Lungs: Clear to auscultation. Abdomen: +BS. Soft. Nontender. No masses or organomegaly. Extremities: No clubbing, cyanosis, or edema. Limited neurological examination is without focal deficits. Pulses: radial=2/4, posterior tibial=2/4. Results & Data Vital Signs (Past 12 Hours) Vital Signs Temp Pulse Resp BP BP Pulse Ox O2 Del Method 02/24/24 14:00 73 02/24/24 11:30 143/91 H 02/24/24 11:30 88 13 97 02/24/24 11:00 96 H 20 97 02/24/24 11:00 135/87 02/24/24 10:44 100 H 15 97 02/24/24 10:44 143/94 H 02/24/24 10:30 109 H 20 99 02/24/24 10:30 190/130 H 02/24/24 10:00 93 H 16 98 02/24/24 10:00 149/89 H 02/24/24 09:56 83 17 100 02/24/24 09:56 158/94 H 02/24/24 09:30 104 H 17 100 02/24/24 09:30 182/108 H 02/24/24 09:00 83 17 100 02/24/24 09:00 158/106 H 02/24/24 08:30 87 15 02/24/24 08:26 94 H 02/24/24 08:00 108 H 15 100 02/24/24 08:00 146/104 H 02/24/24 07:30 102 H 14 97 02/24/24 07:30 156/104 H 02/24/24 07:11 36.7 C 18 150/84 H 97 Room Air 02/24/24 07:09 123 H 13 100 02/24/24 07:09 153/112 H 02/24/24 07:08 111 H 14 97 Room Air 02/24/24 06:53 36.7 C 133 H 16 150/88 H 100 Room Air Laboratory Results Cardiac Enzymes 02/24/24 Range/Units 07:34 AST 13 (13-39) U/L Troponin I High Sens < 2.3 (0-20) pg/ml CBC 02/24/24 Range/Units 07:34 WBC 6.87 (4.8-10.8) K/ul RBC 5.03 (4.70-6.10) M/uL Hgb 14.9 (14.0-18.0) g/dl Hct 43.4 (42.0-52.0) % Plt Count 284 (130-400) K/uL Neut # (Auto) 3.92 (1.40-6.50) K/uL Lymph # (Auto) 2.15 (1.20-3.40) K/uL [place] # (Auto) 0.53 (0.11-0.59) K/uL Eos # (Auto) 0.23 (0.00-0.50) K/uL Baso # (Auto) 0.02 (0.00-0.20) K/uL Comprehensive Metabolic Panel 02/24/24 Range/Units 07:34 Sodium 140 (136-145) mmol/L Potassium 3.5 (3.5-5.1) mmol/L Chloride 105 (98-107) mmol/L Carbon Dioxide 27 (21-32) mmol/L BUN 16 (6-23) mg/dl Creatinine 1.00 (0.6-1.4) mg/dl Glucose 112 H (70-99(Fasting)) mg/dl Calcium 9.9 (8.6-10.3) mg/dl Direct Bilirubin 0.1 (0-0.2) mg/dl AST 13 (13-39) U/L ALT 13 (7-52) U/L Alkaline Phosphatase 61 (34-104) U/L Total Protein 7.4 (6.0-8.3) gm/dl Albumin 4.7 (3.4-5.0) gm/dl Intake and Output 02/23/24 02/24/24 02/24/24 22:59 06:59 14:59 Intake Total 2049 Balance 2049 Intake: IV 2049 Sodium Chloride 0.9% 1,000 ml @ 2000 / 2000 999 mls/hr IV .Q1H1M [facility] Rx#: [id number] cefTRIAXone SODIUM 2,000 mg In 50 / 50 50 ml @ 100 mls/hr IV NOW STA Rx#:[id number] Other: Weight 68.6 kg 68.2 kg Weight Measurement Method Chair Scale Built in [facility] Patient Weight 02/25/24 06:59 Weight 68.2 kg Diagnostic Findings Telemetry: Sinus/sinus tachycardia, with sinus arrhythmia. Heart rates currently in the 80s. EKG on admission revealed sinus tachycardia at 106 bpm with possible left atrial enlargement, LVH. QTc 446 ms. February 24, 2024 TTE Interpretation Summary ([facility], Dr. Bower): Normal left ventricular systolic function. Ejection fraction 65 to 70%. Normal left ventricular wall thickness. Normal left ventricular wall motion. Pulse-wave TDI of the anterior and posterior mitral annulus Demonstrates normal LV relaxation. No significant valvular pathology. Admission chest x-ray: No evidence of pneumonia. Equivocal trace pleural effusions. Chest CTA: No acute abnormality and in particular no evidence of pulmonary embolism. Tiny pulmonary nodules (3) Leukocytosis Leukocytosis type: unspecified Qualified Code(s): D72.829 - Elevated white blood cell count, unspecified
[2024-02-24] MEDS: ACETAMINOPHEN 325 MG TAB PO PRN (21:32)
--- NOTE | 2024-02-24 22:27 | Electrocardiogram Report ---
Test Reason : Blood Pressure : / mmHG Vent. Rate : 106 BPM Atrial Rate : 106 BPM P-R Int : 166 ms QRS Dur : 094 ms QT Int : 336 ms P-R-T Axes : 083 068 072 degrees QTc Int : 446 ms Sinus tachycardia Biatrial enlargement Left ventricular hypertrophy ( [place] product ) Cannot rule out Septal infarct , age undetermined Nonspecific ST abnormality Abnormal ECG No previous ECGs available Confirmed by Mio Joyner ([id number]) on 02/24/2024 10:27:14 PM Referred By: Henna Hurd Confirmed By:Mio Joyner
[2024-02-25] MEDS: LABETALOL HCL IV 5 MG/ML 20ML IV STA (01:26)
[2024-02-25] MEDS: cefTRIAXone SODIUM 2,000 MG in DEXTROSE 5 % MINI-B 50 ML IV SCH (06:26)
[2024-02-25 07:52] LABS: Basophils # (auto) 0.02 K/uL (0.00-0.20); Basophils % (auto) 0.3 %; Eosinophils # (auto) 0.17 K/uL (0.00-0.50); Eosinophils % (auto) 2.7 %; Hematocrit (blood only) 41.3 % (42.0-52.0); Hemoglobin 14.3 g/dl (14.0-18.0); Immature Granulocytes # (auto) 0.02 K/uL (0.01-0.20); Immature Granulocytes % (auto) 0.3 %; Lymphocytes # (auto) 1.52 K/uL (1.20-3.40); Lymphocytes % (auto) 23.8 %; Mean Corpuscular Hgb Conc 34.6 g/dL (32.0-36.0); Mean Corpuscular Volume 86.6 fL (80.0-100.0); Mean Platelet Volume 9.6 fL (9.4-12.4); Monocytes # (auto) 0.48 K/uL (0.11-0.59); Monocytes % (auto) 7.5 %; Neutrophils # (auto) 4.17 K/uL (1.40-6.50); Neutrophils % (auto) 65.4 %; Platelet Count 266 K/uL (130-400); RDW Coefficient of Variation 12.2 % (11.5-14.5); RDW Standard Deviation 38.8 fL (36.4-46.3); Red Blood Count 4.77 M/uL (4.70-6.10); White Blood Count 6.38 K/ul (4.8-10.8)
[2024-02-25] MEDS: CETIRIZINE HCL 10 MG TABLET PO SCH (07:53)
--- OUTSIDE RECORDS SUMMARY | 2024-02-25 09:22 | External Medical Summary ---
Author Name Unknown Address Unknown Organization [id number][place] [place] [address] [place] [address] Laboratory Report Ordering Provider Test Date Status JULIOCESAR BERUMEN 02/23/2024 15:11:57 Final Observation Date Value Abnormality Reference (Units ) Status TSH 02/23/2024 15:11:57 0.82 0.27-4.20 (uIU/mL) Final [place] Location [facility] [place] [address] [facility] [place] [address]
--- OUTSIDE RECORDS SUMMARY | 2024-02-25 09:22 | External Medical Summary ---
Author Name Unknown Address Unknown Organization K01:[facility] [place] - [address] [facility] [id number] Laboratory Report Ordering Provider Test Date Status JULIOCESAR BERUMEN 02/23/2024 15:11:57 Final Observation Date Value Abnormality Reference (Units ) Status BUN 02/23/2024 15:11:57 14 6-20 (mg/dL) Final Creatinine 02/23/2024 15:11:57 0.9 0.6-1.2 (mg/dL) Final Glomerular filtration rate/1.73 sq M.predicted [Volume Rate/Area] in Serum, Plasma or Blood by Creatinine-based formula (CKD-EPI) 02/23/2024 15:11:57 >90 >=60 (mL/min) Final eGFR is calculated based on the CKD-EPI 2020 equation Sodium 02/23/2024 15:11:57 142 135-146 (m mol/L) Final Potassium 02/23/2024 15:11:57 4.0 3.5-5.1 (m mol/L) Final Cl 02/23/2024 15:11:57 102 98-107 (mm ol/L) Final CO2 02/23/2024 15:11:57 24 22-32 (mmo l/L) Final Anion gap 02/23/2024 15:11:57 16 Above high normal 7- 15 (mmol/L) Final Glucose 02/23/2024 15:11:57 105 70-120 (mg /dL) Final Albumin 02/23/2024 15:11:57 5.1 Above high normal 3. 8-5.0 (g/dL) Final AST (Aspartate aminotransferase) 02/23/2024 15:11:57 21 10-50 (U/L) Fin al Alk Phos 02/23/2024 15:11:57 76 35-130 (U/ L) Final Bilirubin, Total 02/23/2024 15:11:57 0.7 <=1 .2 (mg/dL) Final Calcium 02/23/2024 15:11:57 9.7 8.4-10.2 ( mg/dL) Final Protein 02/23/2024 15:11:57 7.4 6.0-8.3 (g /dL) Final ALT (Alanine aminotransferase) 02/23/2024 15:11:57 21 10-50 (U/L) Clement quiroz Performing Location [facility] [place] - [facility] [address] [facility] [id number]
--- OUTSIDE RECORDS SUMMARY | 2024-02-25 09:22 | External Medical Summary | Summary of Care ---
Author Name Unknown Organization [facility] Address [address] [place] [address] Phone [phone] Care Team Providers Care Hot Oiler Name Role Phone Unavailable Primary Care Provider Unavailabl e Reason for Referral * Evaluate & Treat - Unlimited Visits (Within 3 days (urgent)) - Pending Review Specialty Diagnoses / Procedures Referred By Contact Referred To Contact Cardiovascular Medicine / Cardiology Diagnoses Elevated BP without diagnosis of hypertension Raynaud's disease without gangrene Abnormal EKG Henna Hurd PA-C [address] [phone] Referral ID Status Reason Start Date Expiration Date Visits Requested Visits Authorized [id number] Pending Review Specialty Services Required 02/23/[phone] Question Answer Referral Priority Within 3 days (urgent) Where should this appointment be scheduled? [facility] To which of the following clinics are you referring your patient? General Cardiology Clinic Reason for Visit * Reason Comments Other C/o cold fingers and toes for several months with no known indication Encounter Details Date Type Department Care Team (Latest Contact Info) Description 02/23/2024 1:30 PM EDT [facility] Visit [facility] [address] [place] [address] Henna Hurd PA-C [address] [employer] [address] [place] [phone] Elevated BP without diagnosis of hypertension*; Raynaud's disease without gangrene; Abnormal EKG Allergies No known active allergiesdocumented as of this encounter (statuses as of 02/24/2024) Medications No known medicationsdocumented as of this encounter (statuses as of 02/24/2024) Active Problems No known active problems documented as of this encounter (statuses as of 02/24/2024) Social History Tobacco Use Types Packs/Day Years Used Date Smoking Tobacco: Never Smokeless Tobacco: Never Tobacco Cessation:Counseling Given: Not Answered Hunger Vital Sign Answer Date Recorded Within the past 12 months, y ou worried that your food would run out before you got the money to buy more. Never true 02/23/20 24 Within the past 12 months, t he food you bought just didn't last and you didn't have money to get more. Never true 02/23/2024 Sex and Gender Information Value Date Recorded Sex Assigned at Male 02/23/2024 5:59 PM EDT Gender Identity Male 02/23/2024 6:06 PM EDT Sexual Orientation Straight 02/23/2024 5: 59 PM EDT Job Start Date Occupation Industry Not on file Not on file Not on file documented as of this encounter Last Filed Vital Signs Vital Sign Reading Time Taken Comments Blood Pressure 132/110 02/23/2024 2:26 PM EDT Pulse 123 02/23/2024 2:26 PM EDT Temperature 36.7 C (98.1 F) 02/23/2024 2:26 PM ED T Respiratory Rate 16 02/23/2024 2:26 PM EDT Oxygen Saturation 99% 02/23/2024 2:26 PM EDT Inhaled Oxygen Concentration - - Weight 68.9 kg (152 lb) 02/23/2024 2:26 PM EDT Height 177.8 cm (5' 10") 02/23/2024 2:26 PM EDT Body Mass Index 21.81 02/23/2024 2:26 PM EDT documented in this encounter Progress Notes * Jen Ngo LPN - 02/24/2024 7:29 AM EDT Patient was contacted for Specialty HTN. Visit date not found (in office), Visit date not found (telemedicine) Care Gap Outreach Action Taken: Did not contact: After chart review outreach not indicated. BP 132/110 Jen Ngo LPN 02/24/2024 * Henna Hurd PA-C - 02/23/2024 2:40 PM EDT Subjective: Nursing Notes: Tamara Obando LPN 02/23/24 1431 Signed Ney Recinos is a 43 year old male who presents to walk-in clinic today complaining of Chief Complaint Patient presents with Other C/o cold fingers and toes for several months with no known indication Pt is taking CBD and Delta Blue routinely Tried: niacin Pt accompanied by: spouse Sx are increasing episodes of cold feet and hands for the last 2 months, toes and hands , over the last few days as warmed a little w weather, a little better, but seems has to work hard to warm extremities Denies pain in hands/feet when they are cold Also, pt a regular runner, running 5-8 miles, but not in the last month as had a case of hemorrhoids for a month and these have improved. When pt returned to running finding himself very winded now at 3 miles Had heat rate alerts @120 Pt takes Delta 8 which is a Hemp derived THC which he takes w CBD to help his BP. Denies light headed other If stands quickly no sick contacts at home. Sig med hx/risk factors: has elevated BP at doctors' offices, has a log on his phone/watch and elevated sometimes, sometimes 90's /60' Had gall bladder removed Readings at home are closer to normal Review of Systems Constitutional: Negative for activity change, appetite change, fatigue and fever. HENT: Positive for postnasal drip (chronic, has been worked up and felt was from GERD like sxs). Negative for congestion, ear pain, rhinorrhea, sinus pressure, sinus pain, sore throat and voice change. Eyes: Negative for discharge and redness. Respiratory: Negative for cough, chest tightness, shortness of breath and wheezing. Cardiovascular: Positive for palpitations (possibly: can feel and hear heart beat). Negative for chest pain and leg swelling. Gastrointestinal: Negative for abdominal pain, blood in stool, constipation, diarrhea, nausea and vomiting. Musculoskeletal: Negative for arthralgias, neck pain and neck stiffness. Allergic/Immunologic: Negative for environmental allergies. Neurological: Negative for dizziness, numbness and headaches (rarely has a head). Cold feels more sensitive on his skins Hematological: Negative for adenopathy. PMH: There is no problem list on file for this patient. No current outpatient medications on file. No current facility-administered medications for this visit. No past medical history on file. No past surgical history on file. Review of patient's allergies indicates: No Known Allergies Objective: BP 132/110 | Pulse 123 | Temp 36.7 C (98.1 F) (Tympanic) | Resp 16 | Ht 1.778 m (5' 10") | Wt 68.9 kg (152 lb) | SpO2 99% | BMI 21.81 kg/m | BSA 1.84 m Physical Exam Constitutional: Appearance: He is normal weight. Cardiovascular: Rate and Rhythm: Regular rhythm. Tachycardia present. Pulses: Normal pulses. Heart sounds: Normal heart sounds. Pulmonary: Effort: Pulmonary effort is normal. Breath sounds: Normal breath sounds. Musculoskeletal: General: Normal range of motion. Skin: Capillary Refill: Capillary refill takes less than 2 seconds. Coloration: Skin is not pale. Findings: No erythema, lesion or rash. Neurological: Mental Status: He is alert and oriented to person, place, and time. Psychiatric: Mood and Affect: Mood normal. Behavior: Behavior normal. Pt needs new patient appointment to follow up from convenient care EKG showed biatrial enlargement and LVH as well as tachycardia : for this reason, referring to cardiology and referred as urgent, spoke that office and they will be speaking with nurse to see if needs to be early appt or can wait until March when next new appt is available We requested Primary Care Provider appt to be scheduled as well labs ASSESSMENT/PLAN: Elevated BP without diagnosis of hypertension (Primary) - EKG; Future; Expected date: 02/23/2024 - COMPREHENSIVE METABOLIC PANEL; Future; Expected date: 02/23/2024 - CBC WITH WBC DIFFERENTIAL - TSH WITH FREE T4 IF INDICATED; Future; Expected date: 02/23/2024 Raynaud's disease without gangrene - EKG; Future; Expected date: 02/23/2024 - COMPREHENSIVE METABOLIC PANEL; Future; Expected date: 02/23/2024 - CBC WITH WBC DIFFERENTIAL - TSH WITH FREE T4 IF INDICATED; Future; Expected date: 02/23/2024 Discussed with pt the plan and if any SOB, CP, near syncope to go to the ED Over 45 minutes spent with patient exam, counseling, review of previous medical records and with documenting. Return instruction reviewed with pt in detail. Reasons to report to the ED were also reviewed. Voiced understanding Advised to follow up if no improvement in 3-5days. Henna Hurd PA-C documented in this encounter Nursing Notes * Tamara Obando LPN - 02/23/2024 2:31 PM EDT Ney Recinos is a 43 year old male who presents to walk-in clinic today complaining of Chief Complaint Patient presents with Other C/o cold fingers and toes for several months with no known indication Pt is taking CBD and Delta Blue routinely Tried: niacin Pt accompanied by: spouse documented in this encounter Miscellaneous Notes * Pt Handout (on AVS) - Henna Hurd PA-C - 02/23/2024 3:07 PM EDT Images from the original note were not included. [id number] Raynaud Disease Your healthcare provider has told you that you have Raynaud disease. It's also called Raynaud phenomenon (RP) or Raynaud syndrome. There's no cure for Raynaud disease. But you can manage it to help prevent attacks. What are the symptoms of Raynaud disease? A Raynaud disease attack is often triggered by cold or stress. During an attack, blood vessels suddenly narrow (called vasospasm). This most often happens in fingers and toes. In rare cases, the nose, ears, nipples, or even tongue are affected. Narrowed blood vessels reduce the blood supply to the area. The area then turns white, blue, or red. The area may feel tingling, numb, or painful. As the attack passes, the blood vessels open. The affected area may turn bright red as it warms up, then returns to normal color. What is the cause of Raynaud disease? With Raynaud disease, it's believed that blood vessels in the affected areas respond too strongly to certain triggers, such as cold. This makes them narrow (called vasospasm) much more than in peoplewithout the disease. Experts don?t know what causes the blood vessels to react so strongly to certain triggers. In between attacks, the blood vessels are normal and healthy. Attacks don?t permanentlydamage the blood vessels. But they may thicken the artery romo. In some cases, Raynaud disease happens along with another disease or condition. This is often a connective tissue disorder, such as lupus, scleroderma, or rheumatoid arthritis. This is called secondary Raynaud disease (as opposed to primary Raynaud disease discussed above) and may be more severe. If this is the case for you, you and your healthcare provider can discuss treatment for the underlying condition. What are the risk factors? Risk factors for Raynaud disease include: Women are more likely to get Raynaud disease than men. Younger people are at higher risk, often ages 15 to 30. Living in colder climates increases risk. Having a family member with Raynaud disease increases your risk. Underlying rheumatoid conditions may increase your risk. What are possible triggers? Triggers for Raynaud disease include: Cold . Even slight temperature changes can cause an attack. This includes walking into the refrigerated section in the food store. Stress. This causes the body to activate certain substances in the blood vessels that tell the vessels to narrow. Caffeine. Smoking. This causes the blood vessels to narrow. It can make the condition worse. Repetitive movements. Certain medicines. These include beta-blockers, migraine medicine, control pills, and others. Injury. Emotions. Being startled can cause an attack of RD. That's because the startle reflex releases substances that tell the vessels to narrow. How is Raynaud disease diagnosed? Your description of your symptoms, a health history, and a physical exam are often enough for a diagnosis. Blood tests and other tests may be done to see if any underlying conditions are present and rule out other problems. How is Raynaud disease treated? There is no known cure for Raynaud disease. But you can learn to manage symptoms and reduce the number and severity of attacks. For most people, staying away from triggers may be enough to limit attacks. Your healthcare provider may advise you to: Take safety steps to help prevent your hands and feet from losing circulation. This includes: o Dressing warmly in cold weather. o Wearing gloves or mittens when your hands may become cold, such as when you use the refrigerator or freezer. o Not keeping the air conditioning at a low temperature in summer. o Staying away from stress and caffeine. o Exercising regularly. This may reduce the number and severity of attacks. o Quitting smoking, if you smoke. Quitting may improve the condition. This is because smoking causes your blood vessels to narrow and reduces blood flow. Soak your hands or feet in warm (not hot) water. Do this at the first sign of an attack. Keep soaking until your skin color returns to normal. In some people, symptoms are lasting or troubling. For these cases, other treatments are a choice. Your healthcare provider can tell you more about these: Prescription medicines. Some medicines that relax and widen blood vessels, such as calcium channel blockers. These may help ease symptoms. Nerve surgery. This is used for severe cases that don?t respond to other treatments. Surgery removes the nerves around the blood vessels in the hands and feet. Without nerve stimulation, the bloodvessels stay more relaxed. They're less likely to become very narrow due to stimuli. Nerves may be blocked using injections in some cases. If attacks are severe, last for a long time, or occur very often, skin damage and sores (skin ulcers) may result. Controlling attacks can help prevent this. When to get medical care The following problems happen rarely, but they can be serious. Call your healthcare provider right away if you notice any of these: Skin infection or sores A finger or toe turns black The skin breaks open on its own A rash A finger or toe joint becomes painful or swollen Last Reviewed Date: 01/13/202419994057-4070 [employer]. All rights reserved. This information is not intended as a substitute for professional medical care. Always follow your healthcare professional's instructions. documented in this encounter Plan of Treatment Upcoming Encounters Date Type Department Care Team (Late st Contact Info) Description 03/08/2024 7:00 AM EDT Office Visit [facility] [address] [place] [id number] Douglas Zuñiga MD [address] [place] [place] [address] Scheduled Orders Name Type Priority Associated Diagnoses Orde r Schedule EKG EKG Routine Elevated BP without diagnosis of hypertension Raynaud's disease without gangrene Expected: 02/23/2024 (Approximate), Expires: 03/24/2025 Scheduled Referrals Name Type Priority Associated Diagnoses Orde r Schedule CARDIOLOGY REFERRAL OP Referral Within 3 days (urgent) Elevated BP without diagnosis of hypertension Raynaud's disease without gangrene Abnormal EKG Ordered: 02/23/2024 Health Maintenance Due Date Last Done Comments Lipid Panel 1982 Depression Screening 1994 HIV Screening 1997 Hepatitis C Screening 2000 DTaP,Tdap,and Td Vaccines (1 - Tdap) 2001 Hepatitis B (1 of 3 - 19+ 3- dose series) 2001 COVID-19 Vaccine (2022-2 4 season) 2023 Influenza Vaccine (FLU shot) (Season Ended) 2024 GARDASIL-HPV IMMUNIZATION SERIES Aged Out No longer eligible based on patient's age to complete this topic MENINGOCOCCAL (MENACTRA/MENVEO) Aged Out No longer eligible based on patient's age to complete this topic Pneumococcal Vaccine: Pediat rics (0 to 5 Years) and At-Risk Patients (6 to 64 Years) Aged Out No longer eligible b ased on patient's age to complete this topic documented as of this encounter Medical Devices Not on filedocumented as of this encounter Procedures Procedure Name Priority Date/Time Associated Diagnosis Comments DIFFERENTIAL, AUTOMATED Routine 02/23/2024 3:11 PM EDT Elevated BP without diagnosis of hypertension Raynaud's disease without gangrene TSH WITH FREE T4 IF INDICATED Routine 02/23/2024 3:11 PM EDT Elevated BP without diagnosis of hypertension Raynaud's disease without gangrene COMPREHENSIVE METABOLIC PANEL Routine 02/23/2024 3:11 PM EDT Elevated BP without diagnosis of hypertension Raynaud's disease without gangrene CBC Routine 02/23/2024 3:11 PM EDT Elevated BP without diagnosis of hypertension Raynaud's disease without gangrene CBC Routine 02/23/2024 3:11 PM EDT Elevated BP without diagnosis of hypertension Raynaud's disease without gangrene documented in this encounter Results * (ABNORMAL) DIFFERENTIAL, AUTOMATED (02/23/2024 3:11 PM EDT) WBC 15.09(H) 4.00 - 10.80 K/uL 02/23/2024 10:54 PM EDT [facility] Neutrophils % 87.2(H) 40.0 - 75.0 % 02/23/2024 10:54 PM EDT [facility] Lymphocytes % 6.0(L) 18.0 - 42.0 % 02/23/2024 10:54 PM EDT [facility] Monocytes % 5.0 1.0 - 11.0 % 02/23/2024 10:54 PM EDT [facility] Eosinophils % 0.1 0.0 - 6.0 % 02/23/2024 10:54 PM EDT [facility] Basophils % 0.2 0.0 - 2.0 % 02/23/2024 10:54 PM EDT [facility] Immature Granulocytes % 1.5 0.0 - 2.0 % 02/23/2024 10:54 PM EDT [facility] Absolute Neutrophils 13.17(H) 1.80 - 7.70 K/uL 02/23/2024 10:54 PM EDT [facility] Absolute Lymphocytes 0.90(L) 1.00 - 4.80 K/ul 02/23/2024 10:54 PM EDT [facility] Absolute Monocytes 0.75 0.00 - 1.10 K/uL 02/23/2024 10:54 PM EDT [facility] Absolute Eosinophils 0.01 0.00 - 0.70 K/uL 02/23/2024 10:54 PM EDT [facility] Absolute Basophils 0.03 0.00 - 0.20 K/uL 02/23/2024 10:54 PM EDT [facility] Absolute Immature Granulocytes 0.23(H) 0.00 - 0.20 K/uL 02/23/2024 10:54 PM EDT [facility] Blood Venous blood specimen / Unknown Venipuncture / Unknown 02/23/2024 3:11 PM EDT 02/23/2024 3:11 PM EDT Henna Hurd PA-C LAB BLOOD ORDE TR[facility] Organization Address City/State/ZIP Co de Phone Number [facility] [address] [place] [address] * (ABNORMAL) CBC (02/23/2024 3:11 PM EDT) WBC 15.09(H) 4.00 - 10.80 K/uL 02/23/2024 10:54 PM EDT [facility] RBC 5.10 4.50 - 5.25 M/uL 02/23/2024 10:54 PM EDT [facility] HGB 15.6 14.0 - 16.8 g/dL 02/23/2024 10:54 PM EDT [facility] HCT 45.2 40.0 - 48.4 % 02/23/2024 10:54 PM EDT [facility] MCV 88.6 82.0 - 99.5 fL 02/23/2024 10:54 PM EDT [facility] MCH 30.6 27.0 - 34.0 pg 02/23/2024 10:54 PM EDT [facility] MCHC 34.5 32.0 - 36.0 g/dL 02/23/2024 10:54 PM EDT [facility] RDW 12.1 11.5 - 15.5 % 02/23/2024 10:54 PM EDT [facility] PLT 304 140 - 400 K/uL 02/23/2024 10:54 PM EDT [facility] MPV 10.1 6.6 - 11.1 fL 02/23/2024 10:54 PM EDT [facility] nRBCs 0 <=0 /100 WBCs 02/23/2024 10:54 PM EDT LABORATORY C Blood Venous blood specimen / Unknown Venipuncture / Unknown 02/23/2024 3:11 PM EDT 02/23/2024 3:11 PM EDT Henna Hurd PA-C LAB BLOOD ORDAntonieta DELACRUZJACKY Performing Organization Address [facility] [address]/[facility] Co de Phone Number LAB[facility]ATORY [facility] [address] [place] [address] * TSH WITH FREE T4 IF INDICATED (02/23/2024 3:11 PM EDT) TSH 0.82 0.27 - 4.20 uIU/mL 02/24/2024 5:36 AM EDT LABORATORY C Blood Venous blood specimen / Unknown Venipuncture / Unknown 02/23/2024 3:11 PM EDT 02/23/2024 3:11 PM EDT Henna Hurd PA-C LAB BLOOD ORDE TROY Performing Organization Address [facility] [address]/[facility] Co de Phone Number LAB[facility]ATORY [facility] [address] [place] [address] * (ABNORMAL) COMPREHENSIVE METABOLIC PANEL (02/23/2024 3:11 PM EDT) BUN 14 6 - 20 mg/dL 02/24/2024 5:07 AM EDT LAB[facility]ORY [facility] Creatinine 0.9 0.6 - 1.2 mg/dL 02/24/2024 5:07 AM EDT LAB[facility]ORY [facility] Estimated Glomerular Filtration Rate >90 >=60 mL/min 02/24/2024 5:07 AM EDT LAB[facility]ORY [facility] Comment:eGFR is calculated b ased on the CKD-EPI 2020 equation Sodium 142 135 - 146 mmol/L 02/24/2024 5:07 AM EDT LABORATORY C Potassium 4.0 3.5 - 5.1 mmol/L 02/24/2024 5:07 AM EDT LABORATORY C Chloride 102 98 - 107 mmol/L 02/24/2024 5:07 AM EDT [facility] CO2 24 22 - 32 mmol/L 02/24/2024 5:07 AM EDT [facility] Anion Gap 16(H) 7 - 15 mmol/L 02/24/2024 5:07 AM EDT [facility] Glucose 105 70 - 120 mg/dL 02/24/2024 5:07 AM EDT [facility] Albumin 5.1(H) 3.8 - 5.0 g/dL 02/24/2024 5:07 AM EDT [facility] AST 21 10 - 50 U/L 02/24/2024 5:07 AM EDT [facility] Alkaline Phosphatase 76 35 - 130 U/L 02/24/2024 5:07 AM EDT [facility] Bilirubin, Total 0.7 <=1.2 mg/dL 02/24/2024 5:07 AM EDT [facility] Calcium 9.7 8.4 - 10.2 mg/dL 02/24/2024 5:07 AM EDT [facility] Protein 7.4 6.0 - 8.3 g/dL 02/24/2024 5:07 AM EDT [facility] ALT 21 10 - 50 U/L 02/24/2024 5:07 AM EDT [facility] Blood Venous blood specimen / Unknown Venipuncture / Unknown 02/23/2024 3:11 PM EDT 02/23/2024 3:11 PM EDT Henna Hurd PA-C LAB BLOOD JOHN SMIMONS [facility] Organization Address City/State/[facility] Co de Phone Number LABORATORY [facility] [address] [place] [address] documented in this encounter Visit Diagnoses Diagnosis Elevated BP without diagnosis of hypertension- Primary Raynaud's disease without gangrene Abnormal EKG Nonspecific abnormal electrocardiogram (ECG) (EKG) documented in this encounter
--- OUTSIDE RECORDS SUMMARY | 2024-02-25 09:22 | External Medical Summary ---
Author Name Unknown Address Unknown Organization K01:[facility] [address] Laboratory Report Ordering Provider Test Date Status JULIOCESAR BERUMEN 02/23/2024 15:11:57 Final Observation Date Value Abnormality Reference (Units ) Status WBC, Total 02/23/2024 15:11:57 15.09 Above high normal 4.00-10.80 (K/uL) Final RBC 02/23/2024 15:11:57 5.10 4.50-5.25 (M/uL) Final Hemoglobin 02/23/2024 15:11:57 15.6 14.0-16.8 (g/dL) Final HCT 02/23/2024 15:11:57 45.2 40.0-48.4 (%) Final MCV 02/23/2024 15:11:57 88.6 82.0-99.5 (fL) Final MCH 02/23/2024 15:11:57 30.6 27.0-34.0 (pg) Final MCHC 02/23/2024 15:11:57 34.5 32.0-36.0 (g/dL) Final RDW 02/23/2024 15:11:57 12.1 11.5-15.5 (%) Final Platelets 02/23/2024 15:11:57 304 140-400 (K/uL) Final MPV 02/23/2024 15:11:57 10.1 6.6-11.1 (fL) Final Nucleated erythrocytes/100 leukocytes [Ratio] in Blood by Automated count 02/23/2024 15:11:57 0 <=0 (/100 WBCs) Final Performing Location [facility] [place] [address] [place] [address]
--- OUTSIDE RECORDS SUMMARY | 2024-02-25 09:22 | External Medical Summary | Summary of Care ---
Author Name Unknown Organization [facility] Address [address] [place] [address] Phone [phone] Care Team Providers Care Direct Marketing Representative Name Role Phone Unavailable Primary Care Provider Unavailabl e Reason for Referral * Evaluate & Treat - Unlimited Visits (Within 3 days (urgent)) - Pending Review Specialty Diagnoses / Procedures Referred By Contact Referred To Contact Cardiovascular Medicine / Cardiology Diagnoses Elevated BP without diagnosis of hypertension Raynaud's disease without gangrene Abnormal EKG Henna Hurd PA-C [address] [address] Referral ID Status Reason Start Date Expiration Date Visits Requested Visits Authorized [id number] Pending Review Specialty Services Required 02/23/2024 999 [...] 02/23/2024 1:30 PM EDT Convenient Care Visit [facility] [address] [place] [address] Henna Hurd PA-C [address] [address] Elevated BP without diagnosis of hypertension*; Raynaud's disease without gangrene; Abnormal EKG Allergies No known active allergiesdocumented as of this encounter (statuses as of 02/23/2024) Medications No known medicationsdocumented as of this encounter (statuses as of 02/23/2024) Active Problems No known active problems documented as of this encounter (statuses as of 02/23/2024) Social History Tobacco Use Types Packs/Day Years Used Date Smoking Tobacco: Never Smokeless Tobacco: Never Tobacco Cessation:Counseling Given: Not Answered Sex and Gender Information Value Date Recorded Sex Assigned at Not on file Gender Identity Not on file Sexual Orientation Not on file Job Start Date Occupation Industry Not on [...] documented in this encounter Progress Notes * Henna Hurd PA-C - 02/23/2024 2:40 [...] from the original note were not included. [id number] Raynaud Disease Your healthcare provider has told [...] becomes painful or swollen Last Reviewed Date: 01/13/202419990238-9225 [employer]. All rights reserved. This information is not intended as a substitute for professional medical care. Always follow your healthcare professional's instructions. documented in this encounter Plan of Treatment Pending Results Name Type Priority Associated Diagnoses Date /Time COMPREHENSIVE METABOLIC PANEL Lab Routine Elevated BP without diagnosis of hypertension Raynaud's disease without gangrene 02/23/2024 3:11 PM EDT CBC WITH WBC DIFFERENTIAL Lab Routine Elevated BP without diagnosis of hypertension Raynaud's disease without gangrene 02/23/2024 3:11 PM EDT TSH WITH FREE T4 IF INDICATED Lab Routine Elevated BP without diagnosis of hypertension Raynaud's disease without gangrene 02/23/2024 3:11 PM EDT CBC Lab Routine Elevated BP without diagnosis of hypertension Raynaud's disease without gangrene 02/23/2024 3:11 PM EDT DIFFERENTIAL, AUTOMATED Lab Routine Elevated BP without diagnosis of hypertension Raynaud's disease without gangrene 02/23/2024 3:11 PM EDT Scheduled Orders Name Type Priority Associated Diagnoses Orde r Schedule EKG EKG Routine Elevated BP without diagnosis of hypertension Raynaud's disease without gangrene Expected: 02/23/2024 (Approximate), Expires: 03/24/2025 COMPREHENSIVE METABOLIC PANEL Lab Routine Elevated BP without diagnosis of hypertension Raynaud's disease without gangrene Expected: 02/23/2024, Expires: 02/22/2025 TSH WITH FREE T4 IF INDICATED Lab Routine Elevated BP without diagnosis of hypertension Raynaud's disease without gangrene Expected: 02/23/2024, Expires: 02/22/2025 Scheduled Referrals Name Type Priority Associated Diagnoses [...] Not on filedocumented as of this encounter Visit Diagnoses Diagnosis Elevated BP without diagnosis of hypertension- Primary Raynaud's disease without gangrene Abnormal EKG Nonspecific abnormal electrocardiogram (ECG) (EKG) documented in this encounter
--- OUTSIDE RECORDS SUMMARY | 2024-02-25 09:22 | External Medical Summary | Summary of Care ---
Author Name Unknown Organization [facility] Address [address] [place] [address] Phone [phone] Care Team Providers Care Deck Specialist Name Role Phone Unavailable Primary Care Provider Unavailabl e Reason for Referral * Evaluate & Treat - Unlimited Visits (Within 3 days (urgent)) - Pending Review Specialty Diagnoses / Procedures Referred By Contact Referred To Contact Cardiovascular Medicine / Cardiology Diagnoses Elevated BP without diagnosis of hypertension Raynaud's disease without gangrene Abnormal EKG Henna Hurd PA-C [address] [address] Referral ID Status Reason Start Date Expiration Date Visits Requested Visits Authorized [id number] Pending Review Specialty Services Required 02/23/2024 999 [...] 02/23/2024 1:30 PM EDT Convenient Care Visit [facility] [address] [place] [address] Henna Hurd PA-C [address] [address] Elevated BP without diagnosis of hypertension*; Raynaud's [...] from the original note were not included. [id number] Raynaud Disease Your healthcare provider has told [...] becomes painful or swollen Last Reviewed Date: 01/13/202419993349-0245 [employer]. All rights reserved. This information is not [...]
--- OUTSIDE RECORDS SUMMARY | 2024-02-25 09:22 | External Medical Summary | Summary of Care ---
Author Name Unknown Organization [facility] Address [address] [place] [address] Phone [phone] Care Team Providers Care Painter Helper Sign Name Role Phone Unavailable Primary Care Provider Unavailabl e Reason for Visit * Reason Onset Date Comments Test Results 02/24/2024 Encounter Details Date Type Department Care Team ([facility] st Contact Info) Description 02/24/2024 Telephone [facility] [address] [place] [address] Henna Hurd PA-C [address] [place], [place] [id number] Test Results Allergies No known active allergiesdocumented as of this encounter (statuses as of 02/24/2024) Medications No known medicationsdocumented as of this encounter (statuses as of 02/24/2024) Active Problems No known active problems documented as of this encounter (statuses as of 02/24/2024) Social History Tobacco Use Types Packs/Day Years Used Date Smoking Tobacco: Never Smokeless Tobacco: Never Hunger Vital Sign Answer Date Recorded Within [...] on file documented as of this encounter Miscellaneous Notes * Telephone Encounter - Henna Hurd PA-C - 02/24/2024 6:16 AM EDT Called pt twice, left messages both times on voice mail advising him to go to the ER. Pt has very abnormal EKG that appeared to have chronic abnormalities. Labs run, when saw lab results at 5:00 this morning I called from my cell, went to , left message for him to call me. Did not hear back. Went to the office and called again, Voiec Mail, left another message. Called [facility] to see if he arrived there and he had not been there. Called 911 and asked them to go to pt's house to recommend that he go to the ER based on his CBC results which are showing an infection. Officer Michael contacted me and let me know he did speak with pt and and that I was advisinghim to go to the ER. Called [facility] advising them I have been working on reaching out to patient and his presentation and lab results, EKG, everything being faxed to the ER. Faxed note, EKG, labs. Pt called back and let me know he was going to the ER , driving. documented in this encounter Plan of Treatment Upcoming Encounters Date Type Department Care Team (Late st Contact Info) Description 03/08/2024 7:00 AM EDT Office Visit [facility] [address] [address] Douglas Zuñiga MD [address] [address] Health Maintenance Due Date Last Done Comments [...]
--- OUTSIDE RECORDS SUMMARY | 2024-02-25 09:22 | External Medical Summary ---
Author Name Unknown Address Unknown Organization K01:[facility] - [address] [facility] [address] Laboratory Report Ordering Provider Test Date Status JULIOCESAR BERUMEN 02/23/2024 15:11:57 Final Observation Date Value Abnormality Reference (Units ) Status SYNC LEUKOCYTES IN BLOOD BY AUTOMATED COUNT 02/23/2024 15:11:57 15.09 Above high normal 4.00-10.80 (K/uL) Final Segs 02/23/2024 15:11:57 87.2 Above high normal 40.0-75.0 (%) Final Lymphs % 02/23/2024 15:11:57 6.0 Below low normal 18.0-42.0 (%) Final Monos 02/23/2024 15:11:57 5.0 1.0-11.0 (%) Final Eosinophils 02/23/2024 15:11:57 0.1 0.0-6.0 (%) Final Basos 02/23/2024 15:11:57 0.2 0.0-2.0 (%) Final Immature Granulocyte, Percent 02/23/2024 15:11:57 1.5 0.0-2.0 (%) Final Absolute Segs 02/23/2024 15:11:57 13.17 Above high normal 1.80-7.70 (K/uL) Final Lymphs, absolute 02/23/2024 15:11:57 0.90 Below low normal 1.00-4.80 (K/ul) Final Monos, Abs 02/23/2024 15:11:57 0.75 0.00-1.10 (K/uL) Final Eos, Abs 02/23/2024 15:11:57 0.01 0.00-0.70 (K/uL) Final Basos, Abs 02/23/2024 15:11:57 0.03 0.00-0.20 (K/uL) Final Immature Granulocytes, Number 02/23/2024 15:11:57 0.23 Above high normal 0.00-0.20 (K/uL) Final Performing Location [facility] [place] [address] [facility] [address]
[2024-02-25] MEDS: amLODIPine BESYLATE 5 MG TAB PO SCH (10:17)
--- NOTE | 2024-02-25 10:29 | Discharge Summary ---
Date of Service February 25, 2024 Admission HPI Per Admitting Provider This is a 43 y/o male with history of chronic angioedema and environmental allergies who was sent to the ED today by urgent care after lab work yesterday showed leukocytosis. Pt was also noted to have an abnormal EKG for which the urgent care provider had referred patient to cardiology but this appointment was not yet scheduled. Pt reports that he went to urgent care yesterday for evaluation of worsening issues with hands and feet being cold and difficult to warm back up. Digits may get pale at times but no cyanosis or erythema. Initially this was sporadic but now seems to be getting more constant. No associated dysesthesias. Urgent care provider ordered lab work. CBC showed leukocytosis with a WBC count of 15. Provider attempted to reach the patient multiple times between 5 am and 6:30 am today, but when she could not reach him, she spoke with local police and asked them to do a wellness check and send pt to the ER. Pt reports being awoken by the police knocking on his door around 6:30 am today and instructing him to go to the ED, so he complied. Currently, he has no acute complaints. He has noted tachycardia on his heart monitor for the last few weeks. He is a runner - before winter, he was running 5-8 miles 2-3x/week without difficulty. He has continued to exercise indoors through the winter - both aerobic exercise and calisthenics. This coldness in his distal extremities was initially associated with exercise but now more constant. This week he started running again and has noticed that he is more fatigued and gets dyspneic with only a few miles, which is abnormal compared to prior. He denies chest pain, lightheadedness, or syncope. He has also noted dark spots on his toes that started a few months ago (he is not sure exactly when). These spots are not painful, have no bled, and seem to be resolving. He notes that as part of their resolution he may peel several layers of skin off. He has a history of chronic angioedema which was diagnosed by an black and white printer operator several years ago when he lived in [place]. He also has multiple environmental allergies, including different pollens. He does take cetirizine 10 mg daily. He also uses CBD and Delta 8 (THC derivative) daily for blood pressure, to help with stress. He tried niacin this week to try to dilate blood vessels because of the cold extremities - did note flushing. He has taken a few other supplements sporadically but nothing else daily. He has an appointment later this month to establish care with Dr. Zuñiga as his PCP. Admission Exam Per Admitting Provider Sitting up in bed in [facility], he is awake, alert, oriented answering appropriately. He is breathing comfortably on RA. Lungs are CTAB, heart sounds - mildly tachycardic. Abdomen soft, nontender, nondistended. No LE edema. small dark spots noted on toes. He is moving extremities. Principal Diagnosis Sinus tachycardia, resolved Hypertension Possible Raynaud's phenomenon Discharge Exam Constitutional + well hydrated; no acute distress Eyes PERRL, conjunctivae normal, anicteric sclerae ENMT external ear and nose normal, oropharynx normal Respiratory normal respiratory effort, lungs clear to auscultation Cardiovascular RRR, no murmur, no edema Gastrointestinal (Abdomen) normal bowel sounds, soft, nontender, no hepatosplenomegaly Musculoskeletal no cyanosis or clubbing, extremities motor strength 5/5 Neurologic PERRL, EOMI, accommodation nl, no face palsy, no dysarthria Psychiatric A+Ox3, euthymic affect Discharge Data Allergies Allergy/AdvReac Type Severity Reaction Status Date / Time No Known Drug Allergies AdvReac Verified 02/24/24 10:32 Consultations 02/24/24 10:34 ED Decision to Admit Stat 02/24/24 12:25 Consult Cardiology Routine Ordered Studies 02/24/24 12:19 CT angio chest PE protocol Urgent Hospital Course (1) Leukocytosis: (2) Environmental allergies: (3) HTN (hypertension): (4) Tachycardia: 43 y/o male with history of chronic angioedema and environmental allergies who was sent to the ED by urgent care after lab work the previous day for worsening difficulties with cold hands and feet showed leukocytosis. He was also noted to have an abnormal EKG, which he was told was likely related to chronic changes from undiagnosed HTN rather than an acute cardiac issue. He has noted new tachycardia and ROBB over the last several weeks. He has no clear evidence of infection on work-up in the ED Family history of leukemia. Pt denies prior history of sickle cell or other blood dyscrasias that he is aware of. No leukocytosis while inpatient. Normal peripheral smear Patient had Echocardiogram which was unremarkable Cardiology evaluated BP remained elevated 140/80-190/130 during hospital stay Started on amlodipine 2.5mg daily Patient advised to quit Cannabinoid use History of cold hands and feet could be Possible Raynaud's phenomenon Patient to follow up with PCP for further workup and possible Rheum referral if needed CT chest noted tiny nodules in lungs Patient to follow up with PCP for surveillance Reported he already has PCP doron on 03/08/24 Total Time Total Time Spent Total Time Spent (In Minutes): 35 Total Time Includes: Examination of the Patient, Discharge Planning and Medication Reconciliation Discharge Plan Discharge Items Patient Disposition: Home - Self-Care Reason For Visit: TACHYCARDIA, ABNL EKG Discharge Diagnosis: Sinus tachycardia Hypertension Activity: Resume your previous activity Non-emergency contact: Primary Care Provider Call non-emergency contact if: you have any medication questions Follow-up/Referrals: Douglas Zuñiga M.D. [Primary Care Provider] - Diet: Heart Healthy Addtl Attending Provider Instructions: Mr Recinos You were called to come to the hospital due to elevated white blood cells on lab at urgent care. You were noted to have elevated heart rate and blood pressure on presentation. Your heart rate is normalized. Your Echocardiogram was unremarkable. Your Blood pressure continues to stay elevated. You were started on amlodipine 2.5mg daily for now. Please keep a home BP log for your Primary Doctor. Please it is important to follow up with Primary Care Doctor who will consider further workup for possible Raynaud's or Rheumatology referral. Your CT chest noted some tiny nodules that needs follow up/Surveillance as we discussed. It was a pleasure taking care of you Pending Studies at Discharge: Yes Stand-Alone Forms: My [facility], Smoking Cessation Medications and DC Order Prescriptions: New amlodipine [Norvasc] 5 mg Tablet 2.5 mg PO QAM Qty: 30 0RF Continued cetirizine 10 mg Tablet 10 mg PO DAILY Discharge Orders: Discharge Order (Routine); Ordered 02/25/24 Ordered By: Kell Martinez Admission Data Admit Date/Time: 02/24/24 10:27 Attending Provider: Kell Martinez I. Admit Provider: Ryan Jones Primary Care Provider: Douglas Zuñiga Other Providers: Ryan Jones; Robinson Bower Other Interventions: Discharge Summary Assessment (RN) Last Done: 02/25/24 10:38
--- NOTE | 2024-02-25 12:17 | Electrocardiogram Report ---
Test Reason : Blood Pressure : / mmHG Vent. Rate : 090 BPM Atrial Rate : 090 BPM P-R Int : 172 ms QRS Dur : 094 ms QT Int : 366 ms P-R-T Axes : 078 062 059 degrees QTc Int : 447 ms Normal sinus rhythm Possible Left atrial enlargement Left ventricular hypertrophy ST elevation, consider early repolarization, pericarditis, or injury Abnormal ECG When compared with ECG of 24-FEB-2024 07:23, Non-specific change in ST segment in Lateral leads Confirmed by Pito Pressley ([id number]) on 02/25/2024 12:17:33 PM Referred By: Henna Hurd Confirmed By:Pito Pressley
== END 2024-02-25 11:38 | disposition home or self-care (01) ==
LOC: ED 06:47 → 2N 06:47 → SUATTDRO 10:27 → 2N 11:27